=== PATIENT | female | born 1985 | race Caucasian/White ===

== ENCOUNTER 2019-01-10 08:33 | Emergency (ER) | payer BC ==
[~2019-01-10] VITALS: Ht 165.1 cm; Wt 75.0 kg
[2019-01-10 08:38] VITALS: BP 119/76
[2019-01-10] MEDS ORDERED: IBUPROFEN 600 MG TABLET PO ONE ×2 (08:56→09:00)
--- NOTE | 2019-01-10 10:06 | NUR ---
For disharge After Care Instructions given Home ambulatory Stable
== END 2019-01-10 10:06 | disposition home or self-care (01) ==
LOC: ER 08:37
DX: J10.1 Influenza due to other identified influenza virus with other respiratory manifestations (principal)